=== PATIENT | male | born 1950 | race Caucasian/White ===

== ENCOUNTER → 2021-05-16 | Day surgery (SDC) | payer MEDICARE, OTHER ==
[~2021-05-16] VITALS: Ht 180.3 cm; Wt 85.7 kg
[~2021-05-16] MED LIST: AMLODIPINE BESY10 MG PO; ASPIRIN EC325 MG PO; ATORVASTATIN CA40 MG PO; CETIRIZINE HCL10 MG PO; CLOPIDOGREL75 MG PO; FLONASE 0.05% N16 GM; GLIPIZIDE ER10 MG PO; HYDROCODON-ACE1 EAC6 PO; IBUPROFEN800 MG PO; IPRATROPIU0.2 MG/1 M INH; JANUVIA100 MG PO; LISINOPRIL40 MG PO; NITROGLYCERIN1 EAC3 TD; PATADAY2.5 ML EYEBOTH; PROTONIX 40 MG40 M1 PO; PROVENTIL HFA6.7 GM INH; TENORMIN 50 MG50 MG PO; VALIUM 10 MG TA10 MG PO; VITAMIN D31250 MCG PO
== END | disposition home or self-care (01) ==
LOC: OR 06:20
DX: C34.12 Malignant neoplasm of upper lobe, left bronchus or lung (principal); I25.10 Atherosclerotic heart disease of native coronary artery without angina pectoris; I25.2 Old myocardial infarction; Z95.1 Presence of aortocoronary bypass graft; Z95.5 Presence of coronary angioplasty implant and graft; I10 Essential (primary) hypertension; E78.5 Hyperlipidemia, unspecified; J18.9 Pneumonia, unspecified organism; J44.9 Chronic obstructive pulmonary disease, unspecified; E11.9 Type 2 diabetes mellitus without complications; M17.10 Unilateral primary osteoarthritis, unspecified knee; F41.9 Anxiety disorder, unspecified; F17.200 Nicotine dependence, unspecified, uncomplicated; Z79.1 Long term (current) use of non-steroidal anti-inflammatories (NSAID); Z79.01 Long term (current) use of anticoagulants; Z79.82 Long term (current) use of aspirin; Z79.899 Other long term (current) drug therapy; Z90.49 Acquired absence of other specified parts of digestive tract
CPT/HCPCS: 82962; J2704; J3010; J7120

== ENCOUNTER → 2021-06-07 | Outpatient (CLI) | payer MEDICARE, OTHER | LOC: MRI 06-06 09:00 | DX: C34.90 Malignant neoplasm of unspecified part of unspecified bronchus or lung (principal); D51.8 Other vitamin B12 deficiency anemias; G31.9 Degenerative disease of nervous system, unspecified; Z20.822 Contact with and (suspected) exposure to COVID-19 | CPT/HCPCS: 70553; A9577; U0003 ==

== ENCOUNTER → 2021-06-10 | Day surgery (SDC) | payer MEDICARE, OTHER | END | disposition home or self-care (01) | LOC: OR 05:51 | PROVIDERS: Surgery | PROC: 02HV33Z Insertion of Infusion Device into Superior Vena Cava, Percutaneous Approach (ICD-10-PCS; principal; 2021-06-10 07:30) | DX: C34.12 Malignant neoplasm of upper lobe, left bronchus or lung (principal); Z20.822 Contact with and (suspected) exposure to COVID-19; I25.10 Atherosclerotic heart disease of native coronary artery without angina pectoris; I10 Essential (primary) hypertension; M17.10 Unilateral primary osteoarthritis, unspecified knee; J44.9 Chronic obstructive pulmonary disease, unspecified; E78.5 Hyperlipidemia, unspecified; E11.9 Type 2 diabetes mellitus without complications; F17.200 Nicotine dependence, unspecified, uncomplicated; I25.2 Old myocardial infarction; Z79.82 Long term (current) use of aspirin; Z79.02 Long term (current) use of antithrombotics/antiplatelets; Z79.84 Long term (current) use of oral hypoglycemic drugs; Z79.891 Long term (current) use of opiate analgesic; Z79.899 Other long term (current) drug therapy; Z95.1 Presence of aortocoronary bypass graft; Z95.5 Presence of coronary angioplasty implant and graft | CPT/HCPCS: 71045; 77001; 82962; C1769; C1788; J1100; J1642; J2001; J2250; J2405; J2704; J3010; J7030; J7040; J7120; Q9967 ==

== ENCOUNTER → 2021-10-03 | Outpatient (CLI) | payer MEDICARE, OTHER | LOC: HEART CORB 09:00 | DX: I48.91 Unspecified atrial fibrillation (principal); I08.3 Combined rheumatic disorders of mitral, aortic and tricuspid valves; I27.20 Pulmonary hypertension, unspecified | CPT/HCPCS: 93306 ==

== ENCOUNTER → 2021-10-29 | Outpatient (CLI) | payer MEDICARE, OTHER | LOC: CT 09:00 | DX: C34.90 Malignant neoplasm of unspecified part of unspecified bronchus or lung (principal); D51.8 Other vitamin B12 deficiency anemias; R53.82 Chronic fatigue, unspecified; Z51.11 Encounter for antineoplastic chemotherapy | CPT/HCPCS: 71260; Q9967 ==